=== PATIENT | female | born 1965 | race Two or more races ===

== ENCOUNTER → 2024-10-30 | Outpatient (CLI) | payer BC, MEDICAID, SELFPAY ==
--- NOTE | 2024-10-30 09:45 | XR_ITS ---
Examination: Screening digital mammography, bilateral Computer aided detection 3-D breast Tomosynthesis, bilateral Date and time of exam: October 30, 2024 0929 hours Compared to mammograms dating to June 20, 2018 Indication: Screening Technique: Nonmagnified MLO, CC views of the breasts to been obtained, reconstructed from 3-D Tomosynthesis images. R2 computer aided detection program utilized for evaluation of suspicious masses and/or abnormal calcifications. 3-D Tomosynthesis images obtained. Findings: Scattered areas of fibroglandular density. 4 mm nodule retroareolar region right breast 4 mm nodule outer left breast CC view 4.7 cm from the nipple Impression: BI-RADS Category 0: Incomplete: Need additional imaging evaluation 4 mm nodule retroareolar region right breast, recommend follow-up spot tomographic views 4 mm nodule outer left breast CC view, 4.7 cm from the nipple, recommend spot tomographic views upper outer quadrant left breast Recommend bilateral breast sonography follow-up to complete the workup
== END | disposition home or self-care (01) ==
PROVIDERS: Referring Provider Nurse Practitioner Family; Visit Provider Nurse Practitioner Family
DX: Z12.31 Encounter for screening mammogram for malignant neoplasm of breast (principal); R92.8 Other abnormal and inconclusive findings on diagnostic imaging of breast; N63.41 Unspecified lump in right breast, subareolar; N63.21 Unspecified lump in the left breast, upper outer quadrant
CPT/HCPCS: 77063; 77067

== ENCOUNTER → 2024-11-29 | Outpatient (CLI) | payer BC, MEDICAID, SELFPAY ==
[2024-11-29 16:00] LABS: Albumin, Serum 4.9 gm/dL (3.5-5.0); Anion Gap 11 (7-16); BUN/Creatinine Ratio 17 Ratio (12-20); Blood Urea Nitrogen 12 mg/dL (9-23); Calcium 9.9 mg/dL (8.3-10.6); Calcium (Corrected) 9.9 mg/dL (8.5-10.1); Carbon Dioxide 23.7 mMol/L (20.0-31.0); Chloride 107 mMol/L (98-107); Creatinine (Component) 0.7 mg/dL (0.6-1.3); Glucose 231 mg/dL (74-106); Osmolality,Calculated 289 (275-295); Phosphorous 3.4 mg/dL (2.4-5.1); Potassium 3.6 mMol/L (3.4-5.1); Sodium 142 mMol/L (136-145); eGFR > 60 See Note
== END | disposition home or self-care (01) ==
LOC: COPL 13:55
PROVIDERS: PCP Nurse Practitioner Family; Referring Provider Nurse Practitioner Family; Visit Provider Nurse Practitioner Family
DX: R59.0 Localized enlarged lymph nodes (principal)
CPT/HCPCS: 36415; 80069

== ENCOUNTER → 2024-11-30 | Outpatient (CLI) | payer BC, MEDICAID, SELFPAY ==
--- NOTE | 2024-11-30 11:30 | XR_ITS ---
Examination: CT soft tissue neck, with intravenous contrast. 2-D coronal reconstructions. 2-D sagittal reconstructions. Date and time of exam :November 30, 2024 0953 hours INDICATIONS: Palpable lymph nodes in the right neck note is beginning one year ago. CTDI: vol (mGy):10.2 DLP: (mGycm):286 Technique: 1.25 mm axial sections of the neck of the obtained. Coronal and sagittal reconstructions have been obtained. Intravenous contrast administered 50 cc Isovue-370. Low dose protocols were performed. One or more of the following dose reduction techniques were used; automated exposure control, adjustment of the mA and/or KV according to patient size, use of iterative reconstruction technique. Findings: The optic globes exhibit symmetry Mucosal disease in the maxillary antra Symmetrical nasopharynx oropharynx Symmetrical parotid glands Bilateral carotid triangle lymph nodes, the largest on the right side 9 mm on the left side 9 mm Symmetrical submandibular glands The larynx appears normal 6 mm right thyroid nodule Normal epiglottis IMPRESSION: Nonspecific carotid triangle lymph nodes as above, consider 3 month follow-up ultrasound soft tissue neck if the patient's palpable right neck masses persist
== END | disposition home or self-care (01) ==
LOC: CCTX 09:33
PROVIDERS: Referring Provider Nurse Practitioner Family; Visit Provider Nurse Practitioner Family
DX: R59.0 Localized enlarged lymph nodes (principal)
CPT/HCPCS: 70491; A4649; Q9967

== ENCOUNTER → 2024-12-29 | Outpatient (CLI) | payer BC, MEDICAID, SELFPAY ==
--- NOTE | 2024-12-29 10:00 | XR_ITS ---
Examination: Breast ultrasound complete, bilateral Date and time of exam: December 29, 2021 1007 hours INDICATIONS: Mammogram October 30, 2024 4 mm nodule retroareolar region right breast 4 mm nodule outer left breast Technique: Real-time grayscale ultrasonographic imaging bilateral breasts, including all 4 quadrants as well as nipple retroareolar and axillary regions. Findings: Sonographic images right breast Retroareolar cyst 4 x 3 mm No solid nodules Sonographic images left breast 12:00 oval mass lobular margins 8 x 4 x 7 mm IMPRESSION: BI-RADS Category 3: Probably benign findings 1 additional 6 month left breast sonogram follow-up is needed to document stability of 12:00 nodule described above
--- NOTE | 2024-12-29 11:00 | XR_ITS ---
Examination: Diagnostic digital mammography, bilateral Computer aided detection 3-D breast Tomosynthesis, bilateral Date and time of exam: December 29, 2024 1022 hours INDICATIONS: Mammogram October 30, 2024 4 mm nodule retroareolar region right breast 4 mm nodule left breast CC view outer left breast Technique: Nonmagnified MLO, CC views of the breasts to been obtained, reconstructed from 3-D Tomosynthesis images. R2 computer aided detection program utilized for evaluation of suspicious masses and/or abnormal calcifications. 3-D Tomosynthesis images obtained. Findings: The breasts are heterogeneously dense, which may obscure small masses Suspicious mass right breast not depicted Persistent focal asymmetry 4 mm outer left breast CC view Impression: BI-RADS Category 3: Probably benign findings Recommend 1 additional 6 month left mammogram follow-up to document stability of focal asymmetry 4 mm outer left breast CC view
== END | disposition home or self-care (01) ==
PROVIDERS: PCP Family Medicine; Referring Provider Nurse Practitioner Family; Visit Provider Nurse Practitioner Family
DX: R92.333 Mammographic heterogeneous density, bilateral breasts (principal); N64.89 Other specified disorders of breast; N63.25 Unspecified lump in the left breast, overlapping quadrants
CPT/HCPCS: 76641; 77062; 77066; G0279

== ENCOUNTER → 2025-02-26 | Outpatient (CLI) | payer BC, MEDICAID, SELFPAY ==
--- NOTE | 2025-02-26 10:30 | XR_ITS ---
Examination: Thyroid sonography complete Technique: Grayscale sonographic images thyroid lobes with color flow analysis Exam date and time: February 26, 2025 10:30 AM Indications: Swallowing discomfort several weeks, CT soft tissue neck November 2024 6 mm right thyroid nodule. Findings: Right thyroid 4.3 cm midpole 11 x 7 x 8 mm nodule Left thyroid 3.6 cm cholecystitis 4 mm Impression: Right thyroid midpole nodule 11 x 7 x 18 mm
== END | disposition home or self-care (01) ==
PROVIDERS: PCP Nurse Practitioner Family; Referring Provider Nurse Practitioner Family; Visit Provider Nurse Practitioner Family
DX: E04.1 Nontoxic single thyroid nodule (principal)
CPT/HCPCS: 76536

== ENCOUNTER → 2025-05-07 | Outpatient (CLI) | payer BC, MEDICAID, SELFPAY ==
--- NOTE | 2025-05-07 16:00 | XR_ITS ---
Examination: Ultrasound soft tissue head and neck TECHNIQUE: Grayscale sonographic images soft tissue head and neck Date and time: May 07, 2025 1541 hours INDICATIONS: Neck swelling beginning one year ago FINDINGS: Right-sided soft tissue neck lymph nodes 14 x 8 mm, 6 x 5 mm, 8 x 5 mm Left-sided soft tissue neck lymph nodes 5 x 4 mm, 10 x 9 mm, 16 x 7 mm IMPRESSION: Significant cervical lymphadenopathy, suggest CT soft tissue neck post intravenous contrast follow-up
== END | disposition home or self-care (01) ==
PROVIDERS: PCP Nurse Practitioner Family; Referring Provider Nurse Practitioner Family; Visit Provider Nurse Practitioner Family
DX: R59.0 Localized enlarged lymph nodes (principal)
CPT/HCPCS: 76536

== ENCOUNTER → 2025-05-16 | Outpatient (CLI) | payer BC, MEDICAID, SELFPAY ==
[2025-05-16 09:23] LABS: Quantiferon-TB* See Sep Rpt
[2025-05-16 10:23] LABS: Basophils % (Auto) 0 % (0-2.5); Eosinophils # (Auto) 0.1 Thou/mm3 (0.0-0.5); Eosinophils % (Auto) 2 % (0-10); Hemoglobin 13.2 g/dL (12.0-16.0); Immature Granulocytes % (Auto) 0 % (0-0); Immature Granulocytes Auto 0.02 Thou/mm3 (0.00-0.00); Lymphocytes # (Auto) 2.7 Thou/mm3 (1.0-4.8); Lymphocytes % (Auto) 37 % (10-50); Mean Corpuscular Hemoglobin 27.5 pg (25.0-35.0); Mean Corpuscular Volume 83 fL (80-100); Monocytes # (Auto) 0.6 Thou/mm3 (0.0-0.8); Monocytes % (Auto) 8 % (0-12); Neutrophils # (Auto) 3.9 Thou/mm3 (1.8-7.7); Neutrophils % (Auto) 53 % (37-80); Nucleated Red Blood Cell % 0 /100 WBC (0); Platelet Count 267 Thou/mm3 (140-440); RDW Standard Deviation 42.1 fL (36.4-46.3); White Blood Count 7.3 Thou/mm3 (3.6-11.0)
[2025-05-16 10:36] LABS: Glucose Estimated Average 166 mg/dL (80-131); Hemoglobin A1C 7.4 % Hgb (4.8-6.0)
[2025-05-16 10:52] LABS: Albumin, Serum 4.6 gm/dL (3.5-5.0); Anion Gap 10 (7-16); BUN/Creatinine Ratio 13 Ratio (12-20); Blood Urea Nitrogen 10 mg/dL (9-23); C-Reactive Protein < 0.5 mg/dL (0.0-0.9); Calcium 9.2 mg/dL (8.3-10.6); Calcium (Corrected) 9.2 mg/dL (8.5-10.1); Carbon Dioxide 25.3 mMol/L (20.0-31.0); Chloride 106 mMol/L (98-107); Creatinine (Component) 0.8 mg/dL (0.6-1.3); Glucose 159 mg/dL (74-106); Osmolality,Calculated 283 (275-295); Phosphorous 3.7 mg/dL (2.4-5.1); Potassium 4.1 mMol/L (3.4-5.1); Sodium 141 mMol/L (136-145); eGFR > 60 See Note
[2025-05-16 11:20] LABS: Path Review Blood Smear Sent to Pathologist
[2025-05-16 13:37] LABS: Cocci Serology, IgM Negative (Negative)
[2025-05-17 12:40] LABS: Cocci Serology, IgG Negative (Negative)
== END | disposition home or self-care (01) ==
LOC: COPL 09:02
PROVIDERS: PCP Nurse Practitioner Family; Referring Provider Nurse Practitioner Family; Visit Provider Nurse Practitioner Family
DX: R59.0 Localized enlarged lymph nodes (principal); E11.65 Type 2 diabetes mellitus with hyperglycemia
CPT/HCPCS: 36415; 80069; 83036; 85025; 86140; 86331; 86480; 86635

== ENCOUNTER → 2025-06-04 | Outpatient (CLI) | payer BC, MEDICAID, SELFPAY ==
--- NOTE | 2025-06-04 12:51 | XR_ITS ---
Examination: CT soft tissue neck, with intravenous contrast. 2-D coronal reconstructions. 2-D sagittal reconstructions. Date and time of exam :June 04, 2025 1424 hours Comparison November 30, 2024 INDICATIONS: History palpable lymph nodes in the neck, lymphadenopathy on CT soft tissue neck November 30, 2024. CTDI: vol (mGy):11.8 DLP: (mGycm):337 Technique: 1.25 mm axial sections of the neck of the obtained. Coronal and sagittal reconstructions have been obtained. Intravenous contrast administered 50 cc Isovue-370. Low dose protocols were performed. One or more of the following dose reduction techniques were used; automated exposure control, adjustment of the mA and/or KV according to patient size, use of iterative reconstruction technique. Findings: Symmetrical nasopharynx oropharynx Symmetrical submandibular glands Nonpathologic appearing carotid triangle lymph nodes in submental lymph nodes The larynx appears normal Normal epiglottis No prevertebral soft tissue prominence Tiny bilateral thyroid nodules 3 to 4 mm IMPRESSION: No pathologic lymphadenopathy in this study As clinically warranted, consider 6 month follow-up ultrasound soft tissue neck
== END | disposition home or self-care (01) ==
PROVIDERS: PCP Nurse Practitioner Family; Referring Provider Nurse Practitioner Family; Visit Provider Nurse Practitioner Family
DX: R59.0 Localized enlarged lymph nodes (principal)
CPT/HCPCS: 70491; A4649; Q9967

== ENCOUNTER → 2025-10-15 | Outpatient (CLI) | payer BC, MEDICAID, SELFPAY ==
--- NOTE | 2025-10-15 09:30 | XR_ITS ---
Examination: Breast ultrasound, unilateral, left Date and time of exam: October 15, 2025, 0959 hours INDICATIONS: Bilateral breast sonography December 29, 2024 12:00 oval mass left breast lobular margins 8 x 7 mm Technique: Real-time navarro scale ultrasonographic imaging performed left breast including all 4 quadrants as well as nipple retroareolar and axillary region. Findings: 12:00 nodule lobular margins 7 x 10 mm 4:00 nodule lobular margins 4 x 3 mm IMPRESSION: BI-RADS Category 3: Probably benign findings Recommend 1 additional 6-month left breast mammogram follow-up
--- NOTE | 2025-10-15 10:00 | XR_ITS ---
Examination: Diagnostic digital mammography, unilateral, left Computer aided detection 3-D breast Tomosynthesis, unilateral Date and time of exam: October 15, 2025, 1018 hours INDICATIONS: Mammogram December 29, 2024 4 mm focal asymmetry outer left breast cc view Technique: Nonmagnified MLO, CC views of the left breast have been obtained, reconstructed from 3-D Tomosynthesis images. R2 computer aided detection program utilized for evaluation of suspicious masses and/or abnormal calcifications. 3-D Tomosynthesis images obtained. Findings: The breast is heterogeneously dense, which may obscure small masses 4 mm focal asymmetry is confirmed on the spot compression cc view outer left breast Impression: BI-RADS category 3: Probably benign findings Recommend 1 additional 6-month left mammogram follow-up
== END | disposition home or self-care (01) ==
PROVIDERS: PCP Nurse Practitioner Family; Referring Provider Nurse Practitioner Family; Visit Provider Nurse Practitioner Family
DX: R92.332 Mammographic heterogeneous density, left breast (principal)
CPT/HCPCS: 76641; 77061; 77065; G0279